=== PATIENT | male | born 1995 | race Caucasian/White ===

== ENCOUNTER 2017-02-02 20:02 | Emergency (ER) | payer BC, OTHER ==
--- NOTE | 2017-02-02 20:23 | EDM.PDOC ---
ED HPI GENERAL MEDICAL PROBLEM - General Chief Complaint: Lower Extremity Injury/Pain Stated Complaint: PT RT ANKLE Time Seen by Provider: 02/02/17 20:19 - History of Present Illness INITIAL COMMENTS - FREE TEXT/NARRATIVE: HISTORY AND PHYSICAL: History of present illness: Patient's 21-year-old white male gentleman served Q right foot injury that occurred when he twisted his foot getting off of a stair stepper there is no other trauma or concern. Review of systems: As per history of present illness and below otherwise all systems reviewed and negative. Past medical history: As per history of present illness and as reviewed below otherwise noncontributory. Surgical history: As per history of present illness and as reviewed below otherwise noncontributory. Social history: No reported history of drug or alcohol abuse. Family history: As per history of present illness and as reviewed below otherwise noncontributory. Physical exam: HEENT: Atraumatic, normocephalic, pupils reactive, negative for conjunctival pallor or scleral icterus, mucous membranes moist, throat clear, neck supple, nontender, trachea midline. Lungs: Clear to auscultation, breath sounds equal bilaterally, chest nontender. Heart: S1S2, regular, negative for clicks, rubs, or JVD. Abdomen: Soft, nondistended, nontender. Negative for masses or hepatosplenomegaly. Negative for costovertebral tenderness. Pelvis: Stable nontender. Genitourinary: Deferred. Rectal: Deferred. Extremities: Patient has moderate swelling and tenderness over the dorsal aspect of the proximal right forefoot CMS neurovascular is unremarkable ankle is negative Achilles tendon is intact Neuro: Awake, alert, oriented. Cranial nerves II through XII unremarkable. Cerebellum unremarkable. Motor and sensory unremarkable throughout. Exam nonfocal. Diagnostics: X-ray right foot Therapeutics: To be determined Impression: #1 acute right foot injury Definitive disposition and diagnosis as appropriate pending reevaluation and review of above. right ankle Pain Score (Numeric/FACES): 10 - Related Data Allergies Allergy/AdvReac Type Severity Reaction Status Date / Time No Known Allergies Allergy Verified 02/02/17 20:18 Home Meds: Home Meds . [No Known Home Meds] 02/02/17 [History] Past Medical History HEENT History: Reports: None Cardiovascular History: Reports: None Respiratory History: Reports: None Gastrointestinal History: Reports: None Genitourinary History: Reports: None Musculoskeletal History: Reports: None Neurological History: Reports: None Psychiatric History: Reports: ADHD Endocrine/Metabolic History: Reports: None - Infectious Disease History Infectious Disease History: Reports: None - Past Surgical History Male Surgical History: Reports: None Social & Family History - Family History Family Medical History: Noncontributory - Tobacco Use Smoking Status *Q: Current Every Day Smoker Years of Tobacco use: 2 Packs/Tins Daily: 1.5 - Recreational Drug Use Recreational Drug Use: No Review of Systems - Review of Systems Review Of Systems: ROS reveals no pertinent complaints other than HPI. ED EXAM, GENERAL - Physical Exam Exam: See Below (See dictation) Course - Vital Signs Last Recorded V/S: Last Vital Signs Temp 36.9 C 02/02/17 20:14 Pulse 92 02/02/17 20:14 Resp 14 02/02/17 20:14 BP 133/71 02/02/17 20:14 Pulse Ox 98 02/02/17 20:14 - Orders/Labs/Meds Orders: Active Orders 24 hr Category Date Time Status Foot 2V Rt [CR] Stat Exams 02/02/17 20:20 Taken Departure - Departure Time of Disposition: 21:57 Disposition: Home, Self-Care 01 Condition: Good Clinical Impression: Foot injury - Discharge Information Referrals: PCP,None [Primary Care Provider] - Forms: ED Department Discharge Additional Instructions: The following information is given to patients seen in the emergency department who are being discharged to home. This information is to outline your options for follow-up care. We provide all patients seen in our emergency department with a follow-up referral. The need for follow-up, as well as the timing and circumstances, are variable depending upon the specifics of your emergency department visit. If you don't have a primary care physician on staff, we will provide you with a referral. We always advise you to contact your personal physician following an emergency department visit to inform them of the circumstance of the visit and for follow-up with them and/or the need for any referrals to a consulting specialist. The emergency department will also refer you to a specialist when appropriate. This referral assures that you have the opportunity for followup care with a specialist. All of these measure are taken in an effort to provide you with optimal care, which includes your followup. Under all circumstances we always encourage you to contact your private physician who remains a resource for coordinating your care. When calling for followup care, please make the office aware that this follow-up is from your recent emergency room visit. If for any reason you are refused follow-up, please contact the [facility] emergency department at and asked to speak to the emergency department charge nurse. Follow-up primary medical doctor 1-2 days Pankaj wrap as discussed Motrin/Tylenol as directed return as needed as discussed - My Orders Last 24 Hours: My Active Orders 02/02/17 20:20 Foot 2V Rt [CR] Stat - Assessment/Plan Last 24 Hours: My Active Orders 02/02/17 20:20 Foot 2V Rt [CR] Stat
[2017-02-03 07:25] VITALS: BP 121/64
--- NOTE | 2017-02-03 14:10 | CR ---
EXAM DATE: 02/02/17 PATIENT'S AGE: 21 Patient: KAREY MEANS Facility: [place], [place] Site . Site : 1997 Study: XRay Extremity Right FOOT [id number]/27/2017 8:36:26 PM Ordering Physician: Liz Thornton Final Report: CHEST 1 VIEW AP INDICATION: Cough. IMPRESSION: Normal heart size and vascular pattern. Lungs are clear of focal opacities. No pneumothorax or pleural abnormality. Spinal stabilization hardware no change. Gaseous distention of the colon in the upper abdomen also no change. Comparison: 01/23/2017. Dictated by Bryant Puckett MD @ Feb 02 2017 8:47PM ----- ADDENDUM ----- CORRECTED REPORT Right foot 2 VIEWS INDICATION: Pain. IMPRESSION: No visualized fracture. Alignments anatomic. No additional osseous lesion. Dictated by Bryant Puckett MD @ Feb 02 2017 9:02PM (Electronic Signature) Report Signed by Proxy. ERIN
== END 2017-02-02 22:12 | disposition home or self-care (01) ==
LOC: MW.ED 20:02
DX: S99.921A Unspecified injury of right foot, initial encounter (principal); F17.210 Nicotine dependence, cigarettes, uncomplicated; X50.9XXA Other and unspecified overexertion or strenuous movements or postures, initial encounter
CPT/HCPCS: 73620-26-RT; 73620-RT; 99282; 99283